=== PATIENT | male | born 1965 | race Caucasian/White ===

== ENCOUNTER 2018-12-26 12:52 | Day surgery (SDC) | payer BC, OTHER ==
[~2018-12-26] VITALS: Ht 177.8 cm; Wt 122.5 kg
[~2018-12-26 12:52] MED LIST: B COMPLEX1 EACH PO; ENBREL50 MG/1 M1 SQ; FISH OIL300 MG PO; FOLIC ACID 2.51 EACH PO; METHOTREXATE2.5 M1 PO; NORCO 5-325 TA1 EACH PO
[2018-12-26] MEDS ORDERED: MULTIVITAMINS1 EAC7 PO (13:15)
[2018-12-26] MEDS ORDERED: COSENTYX S150 MG/1 M SUB-Q (13:16)
[2018-12-26] MEDS ORDERED: CLOBETASOL PROP50 ML TOP (13:17)
[2018-12-26] MEDS ORDERED: FLUOCINOLONE AC15 G2 TOP (13:19)
[2018-12-26] MEDS ORDERED: NAPROXEN250 MG PO (13:20)
[2018-12-26] MEDS ORDERED: UNISOM50 MG/30 M PO (13:21)
--- NOTE | 2018-12-26 14:30 | NUR ---
12/26/18 1430 Sheets,Nesha 1424 PT ARRIVED TO PACU ON 3L VIA NC, RESP EVEN AND UNLABORED. PT DENIES NAUSEA AND PAIN. PT ENCOURGED TO PASS GAS/AIR. PT DROWSY AND TLAKING TO RN. PLAN OF CARE DISCUSSED WITH PT. 1423 PT ABLE TO PASS GAS/AIR.
--- NOTE | 2018-12-27 18:05 | OR ---
[facility] [address] [place], [place] [address] Signed DATE OF OPERATION: 12/26/2018 SURGEON: Delfin Carmona MD PREOPERATIVE DIAGNOSES: 1. Colon screening. 2. Episodic painless rectal bleeding (minimal). 3. Psoriatic arthritis and psoriatic skin changes, on Cosentyx. POSTOPERATIVE DIAGNOSES: 1. Limited diverticular changes of the sigmoid. 2. Internal hemorrhoidal changes. PROCEDURE: Total colonoscopy to cecum. ANESTHESIA: Intravenous sedation, fentanyl 100 mcg, Versed 9 mg. INDICATION: This large 53-year-old white man is a patient of Dr. Shanita Lange and was referred for consideration of colon cancer screening with colonoscopy. The patient does note he has occasional blood per rectum, which is bright and painless. The patient takes Naprosyn on a routine basis for an arthritis problem and has psoriatic arthritis and psoriatic skin changes enough that he is on Cosentyx. He additionally is noted to have hepatitis C in the past. He is admitted at this time to undergo colonoscopy. He understands the risks of bleeding, infection, and perforation. Notably, he is adopted and has no certain history regarding colon cancer in his blood relatives. His mother was said to have polyps of the colon. FINDINGS: The prep was good. Complete colonoscopy was undertaken to the cecum without question. The appendiceal orifice was identified. He had several diverticula of the sigmoid and left colon. There was no sign of polyps or cancer. He did have some internal and external hemorrhoidal changes with inflammatory change suggestive of recent bleeding, but no active bleeding noted. There was no sign of fissure. PROCEDURE IN DETAIL: The patient was brought to the endoscopy suite and placed in lateral decubitus position, Electronically Signed By: DELFIN CARMONA MD 12/27/18 1800 PATIENT NAME: CAILIN SCHWARZ OPERATIVE REPORT DATE OF : 69 REPORT #: [id number] PHYSICIAN: DELFIN CARMONA MD PCP: SHANITA LANGE MD REPORT IS CONFIDENTIAL AND NOT TO BE RELEASED WITHOUT AUTHORIZATION [facility] [address] [place], [place] [address] Signed given intravenous sedation to the point of slurred speech and nystagmus. Digital rectal examination was normal. An Olympus video colonoscope was passed in the rectum and manipulated throughout the colon, ultimately intubating the cecum itself. The ileocecal valve and appendiceal orifice were normal. Irrigation was undertaken as needed. The scope was carefully withdrawn and examination from that point showed no sign of abnormality other than a few scattered diverticula of the sigmoid and left colon. Retroflexed view of the rectum reasonably normal. However, upon withdrawal of scope through the anal canal, somewhat edematous and slightly friable hemorrhoidal changes were noted. The scope was removed, and the patient was taken to the recovery room in good condition. CONCLUDING DIAGNOSIS: Minimal diverticular changes and hemorrhoidal changes, likely accounting for episodic rectal bleeding. PLAN: Recommend high-fiber diet and/or Citrucel supplement 1 tablespoon daily. We will see back in 6 weeks to assess his progress at that point. If there are problems in the meantime, he will let me know. MD ISH Bains/YAQUELIN /[id number] cc: Shanita Lange MD Copies: SHANITA LANGE MD ~ Electronically Signed By: DELFIN CARMONA MD 12/27/18 1805 PATIENT NAME: CAILIN SCHWARZ OPERATIVE REPORT DATE OF : 69 REPORT #: [id number] PHYSICIAN: DELFIN CARMONA MD PCP: SHANITA LANGE MD REPORT IS CONFIDENTIAL AND NOT TO BE RELEASED WITHOUT AUTHORIZATION
== END 2018-12-26 15:04 | disposition home or self-care (01) ==
LOC: OPS 12:52 → DS 12:52 → OPS 14:15
PROVIDERS: Surgery
PROC: 0DJD8ZZ Inspection of Lower Intestinal Tract, Via Natural or Artificial Opening Endoscopic (ICD-10-PCS; principal; 2018-12-26 14:15)
DX: K64.8 Other hemorrhoids (principal); K57.30 Diverticulosis of large intestine without perforation or abscess without bleeding; G56.00 Carpal tunnel syndrome, unspecified upper limb; L40.50 Arthropathic psoriasis, unspecified; D64.9 Anemia, unspecified; I10 Essential (primary) hypertension; Z79.899 Other long term (current) drug therapy; Z92.25 Personal history of immunosuppression therapy; Z83.71 Family history of colonic polyps
CPT/HCPCS: 99153; G0500; J2250; J3010